=== PATIENT | female | born 1960 | race Caucasian/White ===

== ENCOUNTER → 2017-08-08 | Outpatient (CLI) | payer BC ==
[~2017-08-08] MED LIST: CLC100X PO; GLC/500 PO; HYOS1TAB PO; LEVO150T48 PO; LISI-461 PO; POLY335040 PO; SENN-61 PO; TAPE75TA PO
--- NOTE | 2017-08-08 16:00 | DIAGNOSTIC IMAGING REPORT ---
L LOWER EXT JOINT WITHOUT CLINICAL HISTORY: LEFT ANKLE PAIN, R/O STRESS FRACTURE trauma. Pain. TECHNIQUE: Multi axial MRI acquisition COMPARISON STUDY: None FINDINGS: Unremarkable signal characteristics the osseous structures throughout. Small heel spur. Mild amount of surrounding edema of the associated soft tissue and subcutaneous fat structures. Is potentially is reactive. All major ligamentous and tendinous structures are intact. Ankle mortise is aligned anatomically. There is no evidence for bone marrow replacing process of major osseous structures. All major ligamentous and tendinous structures are intact. Subtalar joint is unremarkable. IMPRESSION: 1. Small heel spur with a moderate amount of reactive soft tissue and subcutaneous fat edematous change. 2. This presumably is reactive. 3. All major ligamentous and tendinous structures are intact. 4. No acute bony abnormality. The above report was generated using voice recognition software. It may contain grammatical, syntax or spelling errors. Electronically signed by: Cristopher Soto M.D. 08/08/2017 3:59 PM Dictated Date/Time: 08/08/2017 3:51 PM
== END | disposition home or self-care (01) ==
LOC: C.MRIBC 14:53
PROVIDERS: ATTEND Orthopaedic Surgery
DX: M25.572 Pain in left ankle and joints of left foot (principal)

== ENCOUNTER → 2017-10-04 | Outpatient (CLI) | payer BC ==
--- NOTE | 2017-10-04 14:11 | MAMMOGRAPHY REPORT ---
BILATERAL DIGITAL SCREENING MAMMOGRAM TOMOSYNTHESIS WITH CAD: 10/04/2017 TECHNIQUE: Breast tomosynthesis in addition to standard 2D mammography was performed. Current study was also evaluated with a Computer Aided Detection (CAD) system. COMPARISON: Comparison is made to exams dated: 01/30/2014 mammogram, 12/11/2012 mammogram, 12/13/2011 m ammogram, 11/08/2010 mammogram, 11/03/2009 mammogram - [facility], and 10/23/2008. BREAST COMPOSITION: There are scattered areas of fibroglandular density in both breasts. FINDINGS: No suspicious masses, calcifications, or areas of architectural distortion are noted in ei ther breast. There has been no significant interval change compared to prior exams. Scattered bilater al benign-appearing calcifications are not significantly changed. IMPRESSION: ACR BI-RADS CATEGORY 2: BENIGN There is no mammographic evidence of malignancy. A 1 year screening mammogram is recommended. The pa tient will receive written notification of the results. Approximately 10% of breast cancers are not detected with mammography. A negative mammographic report should not delay biopsy if a clinically suggestive mass is present. Vivian Swanson M.D. ah/:10/04/2017 07:53:24 Top Lift Scourer: Brittany HALL(Rohit)(M), [facility] letter sent: Normal 1/2 BI-RADS Code: ACR BI-RADS Category 2: Benign
== END | disposition home or self-care (01) ==
LOC: C.MAMM 07:30
PROVIDERS: ATTEND Family Medicine
DX: Z12.31 Encounter for screening mammogram for malignant neoplasm of breast (principal)

== ENCOUNTER → 2018-05-23 | Outpatient (CLI) | payer OTHER ==
[~2018-05-23] MED LIST changes: +OPTIRAY 320 IV PRN
--- NOTE | 2018-05-23 16:09 | DIAGNOSTIC IMAGING REPORT ---
(CHEST FOR PE) ANGIO WITH CT DOSE: 450.63 mGy.cm HISTORY: Chest pain. Dyspnea. POS D DIMER TECHNIQUE: Multiaxial CT images of the chest were performed following the intravenous administration of contrast to evaluate the pulmonary arteries. Maximal intensity projection images were also obtained. A dose lowering technique was utilized adhering to the principles of ALARA. COMPARISON STUDY: None. FINDINGS: The thoracic aorta is normal in course and caliber. No evidence for aneurysm or dissection. Lymph node immediately anterior and superior to the right mainstem bronchus measuring 2.7 cm at maximum. No evidence for pulmonary embolus. Or main pulmonary vascular components enhance appropriately. Additional precarinal adenopathy with nodes measuring to 1.8 cm. Aortopulmonary window nodes are present measuring to 1.7 cm. Lungs otherwise are clear. No significant pulmonary nodularity. Limited evaluation of the upper abdomen demonstrates mild hepatomegaly. IMPRESSION: 1. Right hilar mass measuring 2.7 cm. 2. Additional pathologic mid mediastinal adenopathy. 3. No evidence for pulmonary embolus. 4. Neoplastic processes is the diagnosis of exclusion. The above report was generated using voice recognition software. It may contain grammatical, syntax or spelling errors. Electronically signed by: Cristopher Soto M.D. 05/23/2018 4:08 PM Dictated Date/Time: 05/23/2018 4:01 PM
== END ==
LOC: C.CTS 15:36
PROVIDERS: ATTEND Physician Assistant
DX: R91.8 Other nonspecific abnormal finding of lung field (principal); R59.0 Localized enlarged lymph nodes; R06.02 Shortness of breath; R79.89 Other specified abnormal findings of blood chemistry

== ENCOUNTER → 2018-05-23 | Outpatient (CLI) | payer OTHER ==
[~2018-05-23] MED LIST changes: -OPTIRAY 320 IV PRN
--- NOTE | 2018-05-23 13:47 | DIAGNOSTIC IMAGING REPORT ---
LEFT LOWER EXTREMITY VENOUS DOPPLER CLINICAL HISTORY: Left leg pain. COMPARISON STUDY: No previous studies for comparison. TECHNIQUE: Sonography of the deep venous system of the left lower extremity was performed. Compression and augmentation were evaluated. FINDINGS: The left common femoral, superficial femoral and popliteal veins were compressible. Augmentation was normal. Flow was shown within the deep calf vessels. IMPRESSION: No evidence of deep venous thrombus within the left lower extremity. Electronically signed by: Colton Martin M.D. 05/23/2018 1:46 PM Dictated Date/Time: 05/23/2018 1:44 PM
== END | disposition home or self-care (01) ==
LOC: C.ULTRBC 13:21
PROVIDERS: ATTEND Physician Assistant
DX: R06.02 Shortness of breath (principal); R60.0 Localized edema

== ENCOUNTER → 2018-05-23 | Outpatient (CLI) | payer OTHER ==
[2018-05-23 14:34] LABS: BASO % 0.2 %; BASO ABS # 0.02 K/uL (0-0.2); EOS % 0.8 %; EOS ABS # 0.08 K/uL (0-0.5); HEMATOCRIT 40.2 % (37-47); HEMOGLOBIN 13.3 g/dL (12.0-16.0); IG# 0.03 K/uL (0.00-0.02); LYMPH % 18.9 %; LYMPH ABS # 1.81 K/uL (1.2-3.4); MEAN CELL VOLUME 91.2 fL (80-100); MEAN CORPUSCULAR HEMOGLOBIN 30.2 pg (25-34); MEAN PLATELET VOLUME 9.4 fL (7.4-10.4); MONO % 9.6 %; MONO ABS # 0.92 K/uL (0.11-0.59); NEUT % 70.2 %; NEUT ABS # 6.71 K/uL (1.4-6.5); PLATELET COUNT 362 K/uL (130-400); RED CELL DISTRIBUTION WIDTH CV 13.6 % (11.5-14.5); RED CELL DISTRIBUTION WIDTH SD 44.6 fL (36.4-46.3); WHITE BLOOD COUNT 9.57 K/uL (4.8-10.8)
[2018-05-23 14:45] LABS: MEAN CORPUSCULAR HGB CONC 33.1 g/dl (32-36)
[2018-05-23 15:07] LABS: ALBUMIN 3.5 gm/dl (3.4-5.0); ALT/SGPT 73 U/L (12-78); AST/SGOT 42 U/L (15-37); BLOOD UREA NITROGEN 15 mg/dl (7-18); CARBON DIOXIDE 26 mmol/L (21-32); CREATININE 0.71 mg/dl (0.60-1.20); GLUCOSE 94 mg/dl (70-99); POTASSIUM 3.9 mmol/L (3.5-5.1); SODIUM 136 mmol/L (136-145)
[2018-05-23 15:15] LABS: ALKALINE PHOSPHATASE 132 U/L (45-117); TOTAL PROTEIN 7.8 gm/dl (6.4-8.2)
== END | disposition home or self-care (01) ==
LOC: C.LAB 14:06
PROVIDERS: ATTEND Physician Assistant
DX: R06.02 Shortness of breath (principal); R53.81 Other malaise; R53.83 Other fatigue; R60.0 Localized edema; R35.1 Nocturia; E03.4 Atrophy of thyroid (acquired)

== ENCOUNTER 2018-06-06 13:43 | Inpatient (IN) | payer OTHER ==
[~2018-06-06] VITALS: Ht 160 cm; Wt 86.8 kg
[2018-06-06 14:30] VITALS: BP 120/82; PULSE 101; TEMP 36.8; O2SAT 96
[2018-06-06 14:50] VITALS: BP 120/82; PULSE 101; TEMP 36.8; O2SAT 96
[2018-06-06] MEDS ORDERED: ACETAMINOPHEN 325 MG TAB PO PRN (15:00)
[2018-06-06] MEDS ORDERED: ONDANSETRON INJ 2 MG/ML 2 ML VIAL IV PRN (15:00)
[2018-06-06] MEDS ORDERED: LEVO150T9 PO (15:25)
[2018-06-06] MEDS ORDERED: FURO20TA PO (15:25)
[2018-06-06] MEDS ORDERED: BUPR150T6 PO (15:25)
[2018-06-06] MEDS ORDERED: MULT-190 PO (15:25)
[2018-06-06 16:03] LABS: HEMATOCRIT 32.7 % (37-47); HEMOGLOBIN 10.8 g/dL (12.0-16.0); MEAN CELL VOLUME 90.8 fL (80-100); MEAN PLATELET VOLUME 8.6 fL (7.4-10.4); PLATELET COUNT 518 K/uL (130-400); RED CELL DISTRIBUTION WIDTH CV 13.3 % (11.5-14.5); RED CELL DISTRIBUTION WIDTH SD 44.1 fL (36.4-46.3); WHITE BLOOD COUNT 10.39 K/uL (4.8-10.8)
[2018-06-06 16:24] LABS: ALBUMIN 2.6 gm/dl (3.4-5.0); ALKALINE PHOSPHATASE 104 U/L (45-117); ALT/SGPT 25 U/L (12-78); AST/SGOT 20 U/L (15-37); BLOOD UREA NITROGEN 12 mg/dl (7-18); CALCIUM 8.9 mg/dl (8.5-10.1); CARBON DIOXIDE 25 mmol/L (21-32); CREATININE 0.61 mg/dl (0.60-1.20); GLUCOSE 77 mg/dl (70-99); PHOSPHORUS 2.6 mg/dl (2.5-4.9); POTASSIUM 3.7 mmol/L (3.5-5.1); SODIUM 139 mmol/L (136-145); TOTAL PROTEIN 7.2 gm/dl (6.4-8.2)
--- NOTE | 2018-06-06 16:37 | History and Physical ---
History & Physical Date & Time of Service: Jun 06, 2018 ~ 1500 Chief Complaint: Hilar Adenopathy Primary Care Physician: Andra Goldsmith DO History of Present Illness Source: patient 57-year-old female who was referred for direct admission by Dr. Haridn for evaluation of hilar adenopathy. Over the past few weeks, patient has had extreme fatigue, poor appetite, weight loss, bilateral feet edema, right hand edema, and development of nodular painful rash. She had an outpatient chest CT scan done that showed a 2.7 cm right hilar lymph node with mid mediastinal lymphadenopathy. She reports the soles of her feet are very sore whenever she walks. She reports her symptoms have been slowly progressing. She has fullness of her neck, axilla, groin. She has lost about 13 pounds in 2 months. She has shortness of breath with minimal exertion. She denies orthopnea. No chest pain. She denies lightheadedness, dizziness, diaphoresis, syncopal events. No recent travel or sick contacts. She denies fevers, chills, and night sweats. No urinary symptoms. Patient was evaluated by Dr. Hardin in the clinic today who referred her for direct admission to undergo biopsy of the hilar adenopathy with Dr. Pizarro tomorrow. Past Medical/Surgical History Medical Problems: (1) Hypertension Status: Chronic (2) Hypothyroidism Status: Chronic (3) Polycystic ovary Status: Chronic Surgical Problems: (1) H/O dilation and curettage Status: Chronic (2) H/O tubal ligation Status: Chronic (3) History of carpal tunnel surgery of right wrist Status: Chronic (4) History of partial colectomy Status: Chronic (5) Status post ORIF of fracture of ankle Status: Chronic Family History FH: CAD (coronary artery disease) FATHER FH: hypertension FATHER FH: stroke FATHER Social History Smoking Status: Never Smoker Alcohol Use: occasionally Marital Status: Housing status: lives with family Occupational Status: employed Immunizations History of Influenza Vaccine: Yes Influenza Vaccine Date: Jul 20, 2017 History of Tetanus Vaccine?: Yes Tetanus Immunization Date: Feb 11, 2010 Allergies Coded Allergies: Sulfa Drugs (Verified Allergy, Unknown, ANAPHYLAXIS, 08/08/17) Home Medications Scheduled Bupropion HCl (Bupropion HCl Xl), 150 MG PO DAILY Furosemide (Lasix), 20 MG PO DAILY Levothyroxine Sodium (Levothyroxine Sodium), 1 TAB PO DAILY Lisinopril (Zestril), 10 MG PO DAILY Metformin Hcl (Glucophage), 500 MG PO BID Ocuvite Preservision (Ocuvite Preservision), 1 TAB PO DAILY Review of Systems ROS per HPI, all other systems reviewed and negative Physical Exam Vital Signs Date Time Temp Pulse Resp B/P (MAP) Pulse Ox O2 Delivery O2 Flow Rate FiO2 06/06/18 14:50 36.8 101 20 120/82 (95) 96 Room Air 06/06/18 14:30 36.8 101 20 120/82 (95) 96 Room Air General Appearance: WD/WN, no apparent distress Head: normocephalic, atraumatic Eyes: normal inspection, EOMI, sclerae normal ENT: hearing grossly normal, + pertinent finding (Mucous membranes moist) Neck: supple, no JVD, no carotid bruits, + pertinent finding (Fullness noted to the neck and a palpable lump noted in the left supraclavicular area) Respiratory/Chest: lungs clear, normal breath sounds, no respiratory distress Cardiovascular: regular rate, rhythm, normal peripheral pulses, + pertinent finding (+2 edema BLE, +1-2 edema noted to the right hand) Abdomen/GI: normal bowel sounds, non tender, soft, no organomegaly Extremities/Musculoskelatal: normal inspection, no calf tenderness, normal capillary refill Neurologic/Psych: no motor/sensory deficits, alert, normal mood/affect, oriented x 3 Skin: + rash (Scattered nodular mildly erythematous rash noted to the BUE and BLE) Lymphatic: + pertinent finding (Fullness noted to the neck, axilla, groin areas ; one palpable lump noted to the right supraclavicular area) Diagnostics Laboratory Results Results Past 24 Hours Test 06/06/18 15:49 Range/Units White Blood Count 10.39 4.8-10.8 K/uL Red Blood Count 3.60 4.2-5.4 M/uL Hemoglobin 10.8 12.0-16.0 g/dL Hematocrit 32.7 37-47 % Mean Corpuscular Volume 90.8 80-100 fL Mean Corpuscular Hemoglobin 30.0 25-34 pg Mean Corpuscular Hemoglobin Concent 33.0 32-36 g/dl RDW Standard Deviation 44.1 36.4-46.3 fL RDW Coefficient of Variation 13.3 11.5-14.5 % Platelet Count 518 130-400 K/uL Mean Platelet Volume 8.6 7.4-10.4 fL Diagnostic Radiology CTA CHEST 05/23/18 IMPRESSION: 1. Right hilar mass measuring 2.7 cm. 2. Additional pathologic mid mediastinal adenopathy. 3. No evidence for pulmonary embolus. 4. Neoplastic processes is the diagnosis of exclusion. Impression Assessment and Plan HILAR ADENOPATHY NODULAR RASH -Admit to [facility] -Patient referred for direct admission by Dr. Hardin for evaluation of hilar adenopathy -Over the past few weeks, patient has had extreme fatigue, poor appetite, weight loss, bilateral feet edema, right hand edema, and development of nodular painful rash. -Vital signs stable, labs notable for a mild anemia -Dr. Pizarro planning for biopsy tomorrow -Differentials considered sarcoidosis, lymphoma, erythema nodosum -Rheumatology consult, case discussed with Dr. Youngblood HYPOTHYROIDISM -Continue levothyroxine HYPERTENSION -continue lisinopril DVT PROPHYLAXIS -SCDs due to invasive procedure tomorrow DISPOSITION -In my clinical judgment this beneficiary meets acute admission criteria, established by [facility], that includes being hospitalized through two midnights. ADDENDUM: This is a 57 year old female with a past medical history HTN, hypothyroidism - presents with hilar adenopathy. Sent from pulmonology office. Will need biopsy Patient also has significant rash on b/l extremities, upper and lower. Nodular rash, erythematous and painful. Denies shortness of breath/chest pain. Plan for thoracic surgery to perform mediastinotomy and biopsy rheumatology consulted for the skin changes YOJANA level pending Anemia is new; possibly related to sarcoid? monitor H/H Resuscitation Status VTE Prophylaxis Will order VTE Prophylaxis: Yes
[2018-06-06 16:43] LABS: BASO % 0.3 %; BASO ABS # 0.03 K/uL (0-0.2); EOS % 1.3 %; EOS ABS # 0.13 K/uL (0-0.5); LYMPH % 15.1 %; LYMPH ABS # 1.56 K/uL (1.2-3.4); MONO % 9.2 %; MONO ABS # 0.95 K/uL (0.11-0.59); NEUT % 73.1 %; NEUT ABS # 7.56 K/uL (1.4-6.5)
[2018-06-06 17:20] VITALS: Ht 160 cm; Wt 86.8 kg
--- NOTE | 2018-06-06 18:49 | Progress Note ---
Progress Note Date of Service Jun 06, 2018. Progress Note This 57 year old lady is scheduled for mediastinoscopy and biopsy of a R hilar mass with Dr Pizarro. Prior to the last few weeks, she was in quite good health. She has a medical history of obesity, HTN, hypothyroidism, mild anemia, and PCOS. Over the last few weeks she has had increasing fatigue, unintentional weight loss, peripheral edema, and a dry cough. She denies dyspnea on exertion but has had severe fatigue with any level of exertion. Labs and studies were reviewed. CT of the chest showed no pulmonary edema or PE. She did have an ECG 2-3 weeks ago at [facility], which per the patient was normal, but her clinical picture has worsened since then. Exam was remarkable for normal cardiopulmonary exam. She had a reassuring airway. She has 2+ pitting edema in the bilateral lower extremities and 1+ in the R upper extremity. She also has a rash on her lower and upper extremities. I discussed risks and benefits of GETA with the patient and answered all questions. We will check an ECG tonight and as long as there is no significant changes that warrant an echocardiogram, she can proceed with surgery tomorrow morning.
--- NOTE | 2018-06-06 20:04 | SURGICAL CONSULTATION ---
DATE OF CONSULTATION: 06/06/2018 REASON FOR CONSULTATION: Mediastinal hilar adenopathy. 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 Hardin's office to evaluate her hilar adenopathy. Over the past 2-3 weeks, the patient has had a rapid onset of symptoms which are generalized to include extreme fatigue, poor appetite, weight loss, bilateral pedal edema and also some nodular painful erythematous nodes. These were actually even in her hand today. A CT scan was done as an outpatient which showed that she has marked right hilar and mediastinal adenopathy. Her feet are very sore on the soles. She has lost over 10 pounds in the last month or so. She has dyspnea. Dr. Hardin felt that we admitted her directly from the office in the hopes that we could get a diagnosis and asked me to evaluate her to consider a tissue diagnosis. PAST MEDICAL HISTORY: 1. Polycystic ovary. 2. Hypothyroidism. 3. Hypertension. 4. Lifetime nonsmoker. 5. Diabetes mellitus. PAST SURGICAL HISTORY: 1. 1, para 1, abortus 0. 2. D and C. 3. Tubal ligation. 4. Right carpal tunnel. 5. Partial colectomy. 6. Open reduction internal fixation of right ankle fracture. MEDICATIONS: 1. Bupropion. 2. Lasix. 3. Zestril. 4. Glucophage. 5. Synthroid. ALLERGIES: SULFA RESULT IN ANAPHYLAXIS. SOCIAL HISTORY: The patient lives at home with her . She is an business attorney. She has never smoked cigarettes. Occasionally, will have an alcoholic beverage. Her daughter is a student here at [employer]. FAMILY MEDICAL HISTORY: Daughter is healthy. Father has coronary artery disease, hypertension and a stroke. REVIEW OF SYSTEMS: The patient has lost weight. She really has had no night sweats or fevers. She does have this hilar adenopathy and complains of fullness in her neck and her axilla as well as her groin. She has pain in her feet when she walks. She has had no real joint effusions, but has painful nodules over her elbows and forearms. She also has one on her hand which started today. She has had no wound breakdown. She has had no visual or auditory changes. She denies diplopia. She is extremely fatigued. She denies nausea or vomiting, but has anorexia. She does have marked dyspnea on exertion. She has no orthopnea. She denies productive cough or hemoptysis. She has had no urinary symptoms. Neurologically, she has had no other symptoms other than that described. PHYSICAL EXAMINATION: GENERAL: This is a well-developed, well-nourished female who is awake, alert and oriented. She stands 5 feet 3 inches tall and weighs 191 pounds. HEENT: Extraocular movements are intact. Pupils are equal, round and reactive. Her sclerae are anicteric. She has no nasolabial flattening. Her teeth are in excellent repair. Her tongue is midline. She has no oral mucosal lesions and her pharynx is clear. NECK: Bit tender and thick, but I really do not detect lymphadenopathy. She has no carotid bruits, neck vein distention or thyromegaly. LUNGS: Grossly clear. HEART: She has a regular rate and rhythm of her heart. ABDOMEN: Obese but soft, really not very tender. EXTREMITIES: She does have erythema over her right volar forearm with no fluctuance. She has a painful nodule over her right proximal index finger on the palmar surface. She has good femoral pulses. She has excellent pedal pulses. She has about 2+ edema of her lower extremities. She has a well-healed incision on her right ankle. NEUROLOGIC: She is awake, alert and oriented, has no obvious focal deficits. ASSESSMENT AND PLAN: Marked mediastinal and hilar adenopathy in a patient with constellation of symptoms. The differential diagnosis is rather long here. I have discussed this with Dr. Hardin and we are going to proceed with a mediastinoscopy tomorrow. I had a long discussion with the patient about risk and benefits including but not limited to bleeding and recurrent nerve injury resulting in hoarseness. She understands and "would like to get an answer." We will proceed tomorrow. NAVARRO
[2018-06-06 23:56] VITALS: BP 124/78; PULSE 88; TEMP 36.7; O2SAT 96
[2018-06-07] VITALS (7 sets, daily range): BP systolic 108–129; BP diastolic 71–87; PULSE 83–98; TEMP 36.4–36.8; O2SAT 90–97
[2018-06-07] MEDS: LEVOTHYROXINE 150 MCG TAB PO SCH (06:25)
[2018-06-07 07:10] LABS: BASO % 0.4 %; BASO ABS # 0.03 K/uL (0-0.2); EOS % 2.3 %; EOS ABS # 0.17 K/uL (0-0.5); HEMATOCRIT 34.8 % (37-47); IG# 0.11 K/uL (0.00-0.02); LYMPH % 24.7 %; LYMPH ABS # 1.83 K/uL (1.2-3.4); MEAN CELL VOLUME 92.1 fL (80-100); MEAN CORPUSCULAR HEMOGLOBIN 29.1 pg (25-34); MEAN CORPUSCULAR HGB CONC 31.6 g/dl (32-36); MEAN PLATELET VOLUME 8.8 fL (7.4-10.4); MONO % 10.7 %; MONO ABS # 0.79 K/uL (0.11-0.59); NEUT % 60.4 %; NEUT ABS # 4.47 K/uL (1.4-6.5); PLATELET COUNT 530 K/uL (130-400); RED CELL DISTRIBUTION WIDTH CV 13.4 % (11.5-14.5); RED CELL DISTRIBUTION WIDTH SD 45.3 fL (36.4-46.3)
--- NOTE | 2018-06-07 07:35 | Rheumatology Consultation ---
Rheumatology Consultation Date of Consultation: Jun 07, 2018. Reason for Consultation: Concern for sarcoidosis History of Present Illness 57 year old woman with medical history of hypothyroidism since age 20, hypertension, and history of diverticulitis s/p partial colectomy in 2009 who was admitted from the pulmonary clinic for further evaluation of a hilar mass and lymphadenopathy. History obtained from the patient and review of her records. Onset of symptoms began in early May when she began to notice increased fatigue and constant yawning. She then developed swelling in her feet left worse than right. On 05/23/18 she was seen at [facility] regarding these symptoms. She also noted shortness of breath, decreased appetite, frequent urination, and intermittent head pressure. On exam, her left lower leg was noted to be larger than her right. Several labs were ordered in addition to lower extremity dopplers and EKG. Labs were done at [facility] and showed sed rate of 68, D-dimer 1320, TSH 0.277, CMP with creatinine of 0.71, mildly elevated alk phos at 132, and AST at 42. Lower extremity ultrasound was negative for DVT. CTA did not show pulmonary embolism but revealed lymphadenopathy and a 2.7 cm right hilar mass. She was referred to pulmonary medicine. She was seen again on 05/28 and was noted to have redness and swelling along her right elbow as well as enlarged inguinal lymph nodes. A CT scan of the abdomen and pelvis was ordered. She reported tick exposure. Lyme test was ordered and she was prescribed doxycycline and lasix for her leg swelling. Lyme test returned negative. She notes that the lasix was not helpful. At a follow-up appointment on 06/04/18, she reported 13 pound weight loss in the past 2 months which she attributed to starting Wellbutrin, excessive sleepiness, and dyspnea on exertion. She also noted multiple warm, red, tender raised ernst on her arms and legs thought consistent with erythema nodosum. She had tried Aleve which helped the pain she was experiencing at her ankles and around the tender raised areas but stopped it because of abdominal pain. Labs were ordered and she was prescribed prednisone 20 mg daily for 10 days and potassium iodide. She notes that she could not obtain the potassium iodide and did not take the prednisone. Outside labs from 06/04 showed CBC with platelet count of 569, negative anti-streptolysin O, Sed rate 103, and CRP 140. She was seen by Dr. Hardin on 06/06 and sent to [facility] for direct admission for biopsy. Today, she notes ongoing fatigue. She reports light sensitivity. Legs remain swollen and tender. She notes progression of the red and tender areas on her right arm and new spots on her left hand. She finds benefit from elevating her feet. She has not had any chest pain. No fevers at home or night sweats but soaked her pillow last night which she attributes to sleeping on the plastic side of the pillow. She notes continued decreased appetite. No nausea, vomiting, diarrhea or constipation. No recent travel or sick contacts. 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 Past Medical/Surgical History Hypertension Diverticulitis PCOS Hypothyroidism Tubal ligation D&C Partial colectomy right carpal tunnel release ORIF of right ankle Social History Smoking Status: Never Smoker History of Alcohol Use: Yes (couple monthly) Marital Status: Housing Status: lives with family Occupation Status: employed Review of Systems Constitutional: + weight loss, + fatigue, No fever, No chills Eyes: + problem reported (eye burning) ENT: + problem reported (hoarseness) Respiratory: + dyspnea on exertion Cardiac: + edema Abdomen: + pain Musculoskeletal: + joint pain Female : + urinary frequency Endo: + fatigue, + excessive urination Skin: + rash, + new/changing skin lesions Allergies Coded Allergies: Sulfa Drugs (Verified Allergy, Unknown, ANAPHYLAXIS, 08/08/17) Medications Current Inpatient Medications Medications (Trade) Dose Ordered Sig/Ligia Route Start Time Stop Time Status Last Admin Dose Admin Acetaminophen (Tylenol Tab) 650 mg Q4H PRN PO 06/06/18 15:00 07/06/18 14:59 06/06/18 20:42 650 MG Ondansetron HCl (Zofran Inj) 4 mg Q6H PRN IV 06/06/18 15:00 07/06/18 14:59 Bupropion HCl (Wellbutrin-Xl Tab) 150 mg DAILY PO 06/07/18 09:00 07/07/18 08:59 Levothyroxine Sodium (Synthroid Tab) 150 mcg DAILYBB PO 06/07/18 06:30 07/07/18 06:29 06/07/18 06:25 150 MCG Lisinopril (Zestril Tab) 10 mg DAILY PO 06/07/18 09:00 07/07/18 08:59 Multivitamins/ Minerals (Multivitamin W/ Minerals Tab) 1 tab DAILY PO 06/07/18 09:00 07/07/18 08:59 Physical Exam Date Time Temp Pulse Resp B/P (MAP) Pulse Ox O2 Delivery O2 Flow Rate FiO2 06/07/18 00:00 Room Air 06/06/18 23:56 36.7 88 20 124/78 (93) 96 Room Air 06/06/18 17:20 Room Air 06/06/18 16:00 Room Air 06/06/18 14:50 36.8 101 20 120/82 (95) 96 Room Air 06/06/18 14:30 36.8 101 20 120/82 (95) 96 Room Air Eyes: bilateral eyes normal inspection, bilateral eyes EOMI ENT: normal ENT inspection Neck: supple, + thyroid abnormalities Respiratory: chest non-tender, lungs clear, normal breath sounds, no respiratory distress, no accessory muscle use Cardiovascular: regular rate, rhythm, no murmur Abdomen: normal bowel sounds, non tender, soft Musculoskeletal: Tender joints: right wrist, right elbow, ankles Swollen joints: right wrist, soft tissue swelling of feet and ankles Skin: + pertinent finding (erythema at top of feet, right elbow/extensor surface, small erythematous patch on left hand) Laboratory Results Last 24 Hours Test 06/06/18 15:49 06/07/18 06:23 White Blood Count 10.39 K/uL Red Blood Count 3.60 M/uL Hemoglobin 10.8 g/dL Hematocrit 32.7 % Mean Corpuscular Volume 90.8 fL Mean Corpuscular Hemoglobin 30.0 pg Mean Corpuscular Hemoglobin Concent 33.0 g/dl Platelet Count 518 K/uL Mean Platelet Volume 8.6 fL Neutrophils (%) (Auto) 73.1 % Lymphocytes (%) (Auto) 15.1 % Monocytes (%) (Auto) 9.2 % Eosinophils (%) (Auto) 1.3 % Basophils (%) (Auto) 0.3 % Neutrophils # (Auto) 7.56 K/uL Lymphocytes # (Auto) 1.56 K/uL Monocytes # (Auto) 0.95 K/uL Eosinophils # (Auto) 0.13 K/uL Basophils # (Auto) 0.03 K/uL RDW Standard Deviation 44.1 fL RDW Coefficient of Variation 13.3 % Immature Granulocyte % (Auto) 1.0 % Immature Granulocyte # (Auto) 0.10 K/uL Nucleated RBC Absolute Count (auto) 0.00 K/uL Nucleated Red Blood Cells % 0.0 % Sodium Level 139 mmol/L Potassium Level 3.7 mmol/L Chloride Level 105 mmol/L Carbon Dioxide Level 25 mmol/L Anion Gap 9.0 mmol/L Blood Urea Nitrogen 12 mg/dl Creatinine 0.61 mg/dl Estimated GFR () 118.3 Estimated GFR (Non- 102.1 BUN/Creatinine Ratio 19.6 Random Glucose 77 mg/dl Calcium Level 8.9 mg/dl Phosphorus Level 2.6 mg/dl Magnesium Level 2.4 mg/dl Total Bilirubin 0.3 mg/dl Aspartate Amino Transf (AST/SGOT) 20 U/L Alanine Aminotransferase (ALT/SGPT) 25 U/L Alkaline Phosphatase 104 U/L Total Protein 7.2 gm/dl Albumin 2.6 gm/dl Globulin 4.6 gm/dl Albumin/Globulin Ratio 0.6 Assessment & Plan Assessment & Plan: 57 year old woman with fatigue, lower and upper extremity edema in the setting of systemic inflammation and hilar and mediastinal lymphadenopathy. Differential diagnosis includes infection, a systemic inflammatory syndrome such as sarcoidosis versus vasculitis, and malignancy. Recommendations 1. Agree and appreciate that patient is scheduled for lymph node biopsy 2. Consider echocardiogram 3. Please check ANCA, 1-25 hydroxy-vitamin D and Quantiferon TB gold 4. Can treat with corticosteroids after biopsy. 5. She can be scheduled with me in follow-up as a return patient 1 week after discharge. Thank you for allowing rheumatology to participate in the care of this patient.
[2018-06-07 07:42] LABS: CALCIUM 9.2 mg/dl (8.5-10.1); CREATININE 0.68 mg/dl (0.60-1.20)
[2018-06-07] MEDS ORDERED: LIDOCAINE HCL 2% 2 ML VIAL (20MG/ML) ONE (09:31)
[2018-06-07] MEDS ORDERED: NEOSTIGMINE METHYLSULFATE 5 MG/5 ML SYR ONE (09:31)
[2018-06-07] MEDS ORDERED: ONDANSETRON INJ 2 MG/ML 2 ML VIAL ONE (09:31)
[2018-06-07] MEDS ORDERED: GLYCOPYRROLATE INJ 0.2 MG/ML VIAL ONE (09:31)
[2018-06-07] MEDS ORDERED: DEXAMETHASONE SOD INJ 4 MG/ML VIAL ONE (09:31)
[2018-06-07] MEDS ORDERED: PROPOFOL IV EMULSION 10 MG/ML 20 ML VIAL ONE ×2 (09:31→10:59)
[2018-06-07] MEDS ORDERED: MIDAZOLAM HCL 1 MG/ML 2ML VIAL ONE (09:31)
[2018-06-07] MEDS ORDERED: FENTANYL CITRATE INJ 50 MCG/1 ML 2 ML VIAL ONE (09:31)
[2018-06-07] MEDS ORDERED: ROCURONIUM BROMIDE 10 MG/ML 5 ML VIAL ONE (09:31)
[2018-06-07] MEDS ORDERED: BUPIVACAINE 0.5 % 5 MG/1 ML PF 10ML VIAL ONE (10:07)
--- NOTE | 2018-06-07 10:23 | ECHOCARDIOGRAM REPORT ---
*NOTICE TO RECEIVING CONSTITUTION PARTY AGENCY This information is strictly Confidential and protected under [place] law. [place] law prohibits you from making any further disclosure of this information unless further disclosure is expressly permitted by the written consent of the person to whom it pertains or is authorized by law. A general authorization for the release of medical or other information is not sufficient for this purpose. Hospital accepts no responsibility if the information is made available to any other person, INCLUDING THE PATIENT. Interpretation Summary * Name: GEN SAMUEL Study Date: 06/07/2018 08:26 AM BP: 129/87 mmHg * Patient Location: .[id number]\W261\S\1 HR: 87 * : 1960 (M/d/yyyy) Gender: Female Height: 63 in * Age: 57 yrs Ethnicity: [place] Weight: 191 lb * Ordering Physician: Laisha Valente * Referring Physician: Jamie Baxter * Performed By: Maddy Schulte RCS * * Reason For Study: SHORTNESS OF BREATH * BSA: 1.9 m2 * -- Conclusions -- * Normal LV chamber size with mild concentric LVH. * Normal LV systolic function, EF 60-65%. * No segmental left ventricular wall motion abnormalities are noted. * Grade I diastolic dysfunction. * No significant valvular pathology. Procedure Details * A complete two-dimensional transthoracic echocardiogram was performed (2D, M-mode, Doppler and color flow Doppler). Left Ventricle * The left ventricle is normal in size. * There is mild concentric left ventricular hypertrophy. * Left ventricular systolic function is normal. * No segmental left ventricular wall motion abnormalities are noted. * Ejection Fraction = 60-65%. * The left ventricular wall motion is normal. Right Ventricle * The right ventricular cavity size is normal (basal dimension <4.2 cm in right ventricular apical 4-chamber view). * The right ventricular systolic function is normal as assessed by tricuspid annular plane systolic excursion (TAPSE) (normal >1.5 cm). Atria * The left atrium is mildly dilated. * Right atrial size is normal. * No ASD detected; PFO is not assessed. Mitral Valve * The mitral valve is normal in structure and function. Tricuspid Valve * The tricuspid valve is normal in structure and function. Aortic Valve * The aortic valve is normal in structure and function. Pulmonic Valve * The pulmonary valve is not well seen, but the Doppler examination is normal without significant regurgitation or stenosis. Great Vessels * The aortic root and proximal ascending aorta are normal sized. Pericardium/Pleural * There is no pericardial effusion. Left Ventricular Diastolic Function * Grade I diastolic dysfunction, (abnormal relaxation pattern). MMode 2D Measurements and Calculations IVSd 1.2 cm IVSs 1.4 cm LVIDd 3.5 cm LVIDs 2.3 cm LVPWd 1.2 cm LVPWs 1.4 cm IVS/LVPW 1.0 FS 33.9 % EDV(Teich) 49.9 ml ESV(Teich) 18.0 ml EF(Teich) 63.9 % EDV(cubed) 41.8 ml ESV(cubed) 12.1 ml EF(cubed) 71.2 % % IVS thick 18.5 % % LVPW thick 14.3 % LV mass(C)d 135.4 grams LV mass(C)dI 71.4 grams/m\S\2 LV mass(C)s 101.1 grams LV mass(C)sI 53.3 grams/m\S\2 SV(Teich) 31.9 ml SI(Teich) 16.8 ml/m\S\2 SV(cubed) 29.8 ml SI(cubed) 15.7 ml/m\S\2 Ao root diam 3.4 cm Ao root area 8.9 cm\S\2 LA dimension 4.1 cm LA/Ao 1.2 LVOT diam 2.0 cm LVOT area 3.3 cm\S\2 Doppler Measurements and Calculations MV E max lily 71.7 cm/sec MV A max lily 70.6 cm/sec MV E/A 1.0 MV P1/2t max lily 82.8 cm/sec MV P1/2t 71.9 msec MVA(P1/2t) 3.1 cm\S\2 MV dec slope 337.6 cm/sec\S\2 MV dec time 0.22 sec Ao V2 max 113.0 cm/sec Ao max PG 5.1 mmHg Ao max PG (full) 1.7 mmHg CORINNE(V,A) 2.7 cm\S\2 CORINNE(V,D) 2.7 cm\S\2 LV V1 max PG 3.4 mmHg LV V1 max 92.8 cm/sec PA V2 max 93.2 cm/sec PA max PG 3.5 mmHg PI max lily 135.5 cm/sec PI max PG 7.3 mmHg PI dec slope 233.9 cm/sec\S\2 PI P1/2t 169.6 msec
--- NOTE | 2018-06-07 10:26 | History & Physical Bridge Note ---
H&P Re-Evaluation Bridge Note: I have examined the patient, reviewed the History & Physical and in the interval since the performance of the History & Physical I have noted the following changes of clinical significance: No changes noted
[2018-06-07] MEDS ORDERED: CEFAZOLIN SOD 1 GM VIAL ONE ×2 (10:43→10:44)
--- NOTE | 2018-06-07 11:26 | [facility] Post Operative Brief Note ---
Immediate Operative Summary Operative Date Jun 07, 2018. Pre-Operative Diagnosis Mediastinal hilar adenopathy. Post-Operative Diagnosis Granulomatous lymphadenopathy Procedure(s) Performed Mediastinoscopy with biopsies Surgeon Dr Pizarro Fruit Tester Surgeon(s) Kaushal Ordaz PA-C Estimated Blood Loss 5 cc's Findings Consistent with Post-Op Diagnosis Specimens Frozen section#1 R4 lymph node
[2018-06-07] MEDS ORDERED: D5W AND 1/2NSS 1,000 ML IV SCH (11:29)
[2018-06-07] MEDS ORDERED: TRAMADOL HCL 50 MG TAB PO PRN (11:30)
[2018-06-07] MEDS ORDERED: MoRPHine SULFATE 2 MG/ML CARP IV PRN (11:30)
--- NOTE | 2018-06-07 11:56 | DIAGNOSTIC IMAGING REPORT ---
SINGLE VIEW CHEST CLINICAL HISTORY: Status post mediastinoscopy. FINDINGS: An AP, portable, upright chest radiograph is compared to study dated 03/16/2013 and correlated with chest CT dated 05/23/2018. The examination is degraded by portable technique and patient rotation. The cardiomediastinal silhouette is unremarkable. There are low lung volumes with bibasilar atelectasis. No airspace consolidation or large pleural effusion is identified. No pneumothorax is seen. The bony thorax is grossly intact. IMPRESSION: 1. Low lung volumes with bibasilar atelectasis. 2. No pneumothorax is seen post procedure. Electronically signed by: Zain Villaseñor M.D. 06/07/2018 11:55 AM Dictated Date/Time: 06/07/2018 11:53 AM
[2018-06-07] MEDS ORDERED: HYDROmorphone INJ 0.5 MG/0.5 ML SYR ONE (11:59)
[2018-06-07] MEDS ORDERED: HYDROmorphone INJ 1 MG/ML SYR IV PRN (12:15)
[2018-06-07] MEDS ORDERED: ONDANSETRON INJ 2 MG/ML 2 ML VIAL IV PRN (12:15)
[2018-06-07] MEDS ORDERED: PHENYLEPHRINE 100MCG/ML 5ML SYR IV PRN (12:15)
[2018-06-07] MEDS ORDERED: ATROPINE SULFATE 0.1 MG/ML 5ML SYR IV PRN (12:15)
[2018-06-07] MEDS ORDERED: EpHEDrine SULFATE INJ 50 MG/ML AMP IV PRN (12:15)
--- NOTE | 2018-06-07 12:21 | Anesthesiology Progress Note ---
Anesthesia Post Op Note Date & Time Jun 07, 2018 at 12:20 Vital Signs Pain Intensity: 5.0 Vital Signs Past 12 Hours Date Time Temp Pulse Resp B/P (MAP) Pulse Ox O2 Delivery O2 Flow Rate FiO2 06/07/18 12:10 79 14 114/82 98 Room Air 06/07/18 12:00 85 12 116/72 100 Oxyhood 10 06/07/18 11:50 85 12 122/72 100 Oxyhood 10 06/07/18 11:40 36.2 92 12 118/80 94 Oxyhood 10 06/07/18 08:00 96 Room Air 06/07/18 07:30 36.6 83 18 129/87 (101) 96 Room Air Notes Mental Status: alert / awake / arousable, participated in evaluation Pt Amnestic to Procedure: Yes Nausea / Vomiting: adequately controlled Pain: adequately controlled Airway Patency, RR, SpO2: stable & adequate BP & HR: stable & adequate Hydration State: stable & adequate Anesthetic Complications: no major complications apparent
--- NOTE | 2018-06-07 12:36 | OPERATIVE REPORT ---
DATE OF OPERATION: 06/07/2018 PREOPERATIVE DIAGNOSIS: Mediastinal adenopathy. POSTOPERATIVE DIAGNOSIS: Apparent granulomatous inflammation mediastinal lymph nodes. PROCEDURE: Video mediastinoscopy with biopsy. SURGEON: Michael Pizarro MD VIDEO GAME REPAIR TECHNICIAN: Shamar Ordaz. (Mr. Ordaz was present for the entire case and closed the skin incision at conclusion). ANESTHESIA: General anesthesia, endotracheal intubation. 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 She has had marked arthralgias. She has had what appeared to be erythema nodosum. She has been quite short of breath and had edema in her pretibial and tibial areas. She has been markedly dyspneic but has had no real cough. She has had no fevers. She has marked mediastinal and hilar adenopathy. Dr. Nathan Hardin asked if I would evaluate her. I felt that a mediastinoscopy is the most expedient way to get a diagnosis here. On 06/07/2018 the patient underwent uncomplicated video mediastinoscopy. I biopsied a very large right level 4 node, a level 2 node and a level 7 node. I did not biopsy anything on the left side. She also had a cervical node which was right in the area of the incision that I removed. We got into very little bleeding. We did use cautery on the right side. She tolerated it well, was extubated in the room. PROCEDURE: The patient brought to operating room and laid in supine position. General anesthesia induced and endotracheal intubation was performed with a single lumen tube. She was prepped and draped in usual sterile fashion, calling appropriate timeout and given prophylactic antibiotics. Incision was made 1 fingerbreadth below the sternal notch. Sharp and blunt dissection was used to dissect down to the pretracheal area which was developed bluntly. The video mediastinoscope was then placed and we could see that there was a large level 4 node right away. I biopsied this multiple times and essentially cleaned this off above the azygos vein on the right. There also was a smaller right level 2 node which I biopsied. We did send a level 4 for frozen section. There was a significant level 7 node that I biopsied also. I did control bleeding of this with the suction cautery. We had excellent visualization. I visualized the azygos vein and biopsied a small level 10 node also. There was a larger hilar node out further. However, I did not feel this was necessary after we got the frozen section back. We really got into very little bleeding. We sent the level 4 off for frozen section and I went over to the lab and looked at this with Dr. Alok Santamaria. This appears to be granulomatous inflammation with non-necrotizing granulomas. For this reason we felt that we could close at this point. 3-0 Vicryl was used in running continuous fashion and closed the strap muscles in the midline. 4-0 Monocryl was used in running subcuticular fashion to approximate the wound edges. She tolerated it very well. Sterile antibiotic dressings were placed and she went back to the postanesthesia care unit in stable condition. I attest to the content of the Intraoperative Record and any orders documented therein. Any exception s are noted below.
[2018-06-07] MEDS: METOCLOPRAMIDE HCL INJ 5 MG/ML 2 ML VIAL IV. SCH ×2 (13:33→21:55)
[2018-06-07] MEDS: ACETAMINOPHEN IV 1,000 MG in EMPTY BAG 0 ML IV SCH ×2 (13:34→21:58)
--- NOTE | 2018-06-07 15:59 | Progress Note ---
Internal Med Progress Note Date of Service: Jun 07, 2018. Provider Documentation: SUBJECTIVE: The patient was seen but not examined History and examination report reviewed She has been feeling awful for the last 1-1/2 week Denies any significant pain and/or shortness of breath OBJECTIVE: Vital Signs-as noted below Exam: Not examined today Lab data as noted below. ASSESSMENT & PLAN: Assessment and Plan HILAR ADENOPATHY NODULAR RASH -Patient referred for direct admission by Dr. Hardin for evaluation of hilar adenopathy -Over the past few weeks, patient has had extreme fatigue, poor appetite, weight loss, bilateral feet edema, right hand edema, and development of nodular painful rash. -Vital signs stable, labs notable for a mild anemia -Dr. Pizarro planning for biopsy this afternoon -Differentials considered sarcoidosis, lymphoma, erythema nodosum -Rheumatology consult, case discussed with Dr. Youngblood-appreciate input and recommendation -Awaiting for the blood test results HYPOTHYROIDISM -Continue levothyroxine HYPERTENSION -continue lisinopril DVT PROPHYLAXIS -SCDs due to invasive procedure tomorrow DISPOSITION -In my clinical judgment this beneficiary meets acute admission criteria, established by [facility], that includes being hospitalized through two midnights. Vital Signs: Date Time Temp Pulse Resp B/P (MAP) Pulse Ox O2 Delivery O2 Flow Rate FiO2 06/07/18 15:18 36.8 98 17 108/72 (84) 95 Room Air 06/07/18 13:15 36.6 88 16 121/81 (94) 90 Room Air 06/07/18 12:56 36.4 84 16 127/84 (98) 91 Room Air 06/07/18 12:30 36.7 80 12 127/92 99 Room Air 06/07/18 12:20 79 14 123/82 99 Room Air 06/07/18 12:10 79 14 114/82 98 Room Air 06/07/18 12:00 85 12 116/72 100 Oxyhood 10 06/07/18 11:50 85 12 122/72 100 Oxyhood 10 06/07/18 11:40 36.2 92 12 118/80 94 Oxyhood 10 06/07/18 08:00 96 Room Air 06/07/18 07:30 36.6 83 18 129/87 (101) 96 Room Air 06/07/18 00:00 Room Air 06/06/18 23:56 36.7 88 20 124/78 (93) 96 Room Air 06/06/18 17:20 Room Air 06/06/18 16:00 Room Air Lab Results: Results Past 24 Hours Test 06/07/18 06:23 06/07/18 13:01 Range/Units White Blood Count 7.40 4.8-10.8 K/uL Red Blood Count 3.78 4.2-5.4 M/uL Hemoglobin 11.0 12.0-16.0 g/dL Hematocrit 34.8 37-47 % Mean Corpuscular Volume 92.1 80-100 fL Mean Corpuscular Hemoglobin 29.1 25-34 pg Mean Corpuscular Hemoglobin Concent 31.6 32-36 g/dl Platelet Count 530 130-400 K/uL Mean Platelet Volume 8.8 7.4-10.4 fL Neutrophils (%) (Auto) 60.4 % Lymphocytes (%) (Auto) 24.7 % Monocytes (%) (Auto) 10.7 % Eosinophils (%) (Auto) 2.3 % Basophils (%) (Auto) 0.4 % Neutrophils # (Auto) 4.47 1.4-6.5 K/uL Lymphocytes # (Auto) 1.83 1.2-3.4 K/uL Monocytes # (Auto) 0.79 0.11-0.59 K/uL Eosinophils # (Auto) 0.17 0-0.5 K/uL Basophils # (Auto) 0.03 0-0.2 K/uL RDW Standard Deviation 45.3 36.4-46.3 fL RDW Coefficient of Variation 13.4 11.5-14.5 % Immature Granulocyte % (Auto) 1.5 % Immature Granulocyte # (Auto) 0.11 0.00-0.02 K/uL Sodium Level 139 136-145 mmol/L Potassium Level 4.0 3.5-5.1 mmol/L Chloride Level 104 98-107 mmol/L Carbon Dioxide Level 27 21-32 mmol/L Anion Gap 8.0 3-11 mmol/L Blood Urea Nitrogen 12 7-18 mg/dl Creatinine 0.68 0.60-1.20 mg/dl Est Creatinine Clear Calc Drug Dose 97.6 ml/min Estimated GFR () 114.1 Estimated GFR (Non- 98.5 BUN/Creatinine Ratio 17.3 10-20 Random Glucose 113 70-99 mg/dl Calcium Level 9.2 8.5-10.1 mg/dl 25-Hydroxy Vitamin D Total 8.0 30-100 ng/ml Microbiology Results 06/07/18 Acid Fast Stain, Received Pending 06/07/18 Mycobacterial Culture, Received Pending 06/07/18 Fungal Smear, Received Pending 06/07/18 Fungal Culture, Received Pending 06/07/18 Gram Stain, Received Pending 06/07/18 Bacterial Culture, Received Pending 06/07/18 Acid Fast Stain, Received Pending 06/07/18 Mycobacterial Culture, Received Pending 06/07/18 Fungal Smear, Received Pending 06/07/18 Fungal Culture, Received Pending 06/07/18 Gram Stain, Received Pending 06/07/18 Bacterial Culture, Received Pending
[2018-06-07] MEDS: CEROVITE ADV FORMULA TAB PO SCH (16:19)
[2018-06-07] MEDS: BuPROPion XL 150 MG TABCR PO SCH (16:19)
[2018-06-07] MEDS: LISINOPRIL 10 MG TAB PO SCH (16:20)
[2018-06-07] MEDS ORDERED: COUGH DROP (SUGAR FREE) LOZ 24 LOZ/1 BOX LOZ PRN (17:15)
[2018-06-07] MEDS ORDERED: ERGOCALCIFEROL 50,000 INTER.UNIT CAP PO ONE (17:43)
[2018-06-07] MEDS: DOCUSATE SODIUM 100 MG CAP PO SCH (21:57)
[2018-06-08] MEDS: LEVOTHYROXINE 150 MCG TAB PO SCH (05:52)
[2018-06-08] MEDS: ACETAMINOPHEN IV 1,000 MG in EMPTY BAG 0 ML IV SCH (05:52)
[2018-06-08] MEDS: METOCLOPRAMIDE HCL INJ 5 MG/ML 2 ML VIAL IV. SCH (05:53)
[2018-06-08 07:16] VITALS: BP 119/76; PULSE 101; TEMP 36.8; O2SAT 96
[2018-06-08 07:45] VITALS: O2SAT 96
[2018-06-08] MEDS: BuPROPion XL 150 MG TABCR PO SCH (08:13)
[2018-06-08] MEDS: DOCUSATE SODIUM 100 MG CAP PO SCH (08:13)
[2018-06-08] MEDS: CEROVITE ADV FORMULA TAB PO SCH (08:15)
[2018-06-08] MEDS ORDERED: ENOXAPARIN 40 MG/0.4 ML SYR SQ SCH (09:00)
[2018-06-08] MEDS: LISINOPRIL 10 MG TAB PO SCH (09:03)
--- NOTE | 2018-06-08 09:40 | Surgery Progress Note ---
Subjective Date of Service: Jun 08, 2018. Pt. notes she has some hoarseness in her voice that was present prior to surgery. No fevers, shakes, chills. No CP or SOB. She denies dysphagia. Objective Vitals Date Time Temp Pulse Resp B/P (MAP) Pulse Ox O2 Delivery O2 Flow Rate FiO2 06/08/18 07:45 96 Room Air 06/08/18 07:16 36.8 101 16 119/76 (90) 96 Room Air 06/08/18 00:00 Room Air 06/07/18 23:22 36.7 98 16 108/71 (83) 96 Room Air 06/07/18 16:17 97 Room Air 06/07/18 15:18 36.8 98 17 108/72 (84) 95 Room Air 06/07/18 13:15 36.6 88 16 121/81 (94) 90 Room Air 06/07/18 12:56 36.4 84 16 127/84 (98) 91 Room Air 06/07/18 12:30 36.7 80 12 127/92 99 Room Air 06/07/18 12:20 79 14 123/82 99 Room Air 06/07/18 12:10 79 14 114/82 98 Room Air 06/07/18 12:00 85 12 116/72 100 Oxyhood 10 06/07/18 11:50 85 12 122/72 100 Oxyhood 10 06/07/18 11:40 36.2 92 12 118/80 94 Oxyhood 10 Physical Exam General: + well developed, + well nourished, No distress CV: + RRR Pulmonary: + lungs clear, No accessory muscle use, No respiratory distress Neurologic: + alert & oriented x 3 Additional Notes: Voice is somewhat raspy and hoarse Assessment & Plan 57 year old female with mediastinal adenopathy -pt. is s/p mediastinoscopy: -preliminary path suggestive of sarcoidosis -pt. has been started on steroids by primary service -pt. stable for d/c from thoracic surgery standpoint: -discussed with pt. that dressing may be removed in 2 days and she may shower thereafter (no tub baths) -formal follow-up with thoracic not required, however I instructed pt. to call office with any concerns -pt. will need to f/u with PCP, rheumatology, and pulmonary following d/c -discussed with primary service
[2018-06-08 10:34] VITALS: BP 119/76; PULSE 101; TEMP 36.8; O2SAT 96
--- NOTE | 2018-06-08 10:40 | Progress Note ---
Internal Med Progress Note Date of Service: Jun 08, 2018. Provider Documentation: SUBJECTIVE: The patient was seen but not examined History and examination report reviewed She has been feeling awful for the last 1-1/2 week Denies any significant pain and/or shortness of breath 06/08: Has been feeling reasonably better since yesterday Status post mediastinoscopy and lymph node biopsy suggestive of sarcoidosis Has been started 1 prednisone 40 mg daily since yesterday Her symptoms of joint pain and swelling are much better She will be discharged today OBJECTIVE: Vital Signs-as noted below Exam: No apparent distress at rest Hemodynamically stable HEENT-unremarkable Chest-occasional wheezing anteriorly Heart-S1-S2 regular, no murmur Abdomen-benign Extremities-trace edema bilaterally REWIND OPERATOR-alert ,awake and oriented 3 No focal neuro deficit Lab data as noted below. Frozen section biopsy of mediastinal lymph node suggestive of sarcoidosis Final diagnosis is pending ASSESSMENT & PLAN: Assessment and Plan Sarcoidosis HILAR ADENOPATHY NODULAR RASH -Patient referred for direct admission by Dr. Hardin for evaluation of hilar adenopathy -Over the past few weeks, patient has had extreme fatigue, poor appetite, weight loss, bilateral feet edema, right hand edema, and development of nodular painful rash. -Vital signs stable, labs notable for a mild anemia -Dr. Pizarro planning for biopsy this afternoon -Differentials considered sarcoidosis, lymphoma, erythema nodosum -Rheumatology consult, case discussed with Dr. Youngblood-appreciate input and recommendation -Started on prednisone 40 mg daily -Discussed with the rheumatology, pulmonary and vascular surgery -We will discharge home today on prednisone 40 mg daily -Appointments with the pulmonary, primary care have been made Status post mediastinoscopy with lymph node biopsy Frozen section showed noncaseating granuloma suggestive of sarcoidosis Final pathology report is pending HYPOTHYROIDISM -Continue levothyroxine HYPERTENSION -continue lisinopril DVT PROPHYLAXIS -SCDs due to invasive procedure tomorrow DISPOSITION -Discharge home today Vital Signs: Date Time Temp Pulse Resp B/P (MAP) Pulse Ox O2 Delivery O2 Flow Rate FiO2 06/08/18 07:45 96 Room Air 06/08/18 07:16 36.8 101 16 119/76 (90) 96 Room Air 06/08/18 00:00 Room Air 06/07/18 23:22 36.7 98 16 108/71 (83) 96 Room Air 06/07/18 16:17 97 Room Air 06/07/18 15:18 36.8 98 17 108/72 (84) 95 Room Air 06/07/18 13:15 36.6 88 16 121/81 (94) 90 Room Air 06/07/18 12:56 36.4 84 16 127/84 (98) 91 Room Air 06/07/18 12:30 36.7 80 12 127/92 99 Room Air 06/07/18 12:20 79 14 123/82 99 Room Air 06/07/18 12:10 79 14 114/82 98 Room Air 06/07/18 12:00 85 12 116/72 100 Oxyhood 10 06/07/18 11:50 85 12 122/72 100 Oxyhood 10 06/07/18 11:40 36.2 92 12 118/80 94 Oxyhood 10 Lab Results: Results Past 24 Hours Test 06/07/18 13:01 06/08/18 07:22 Range/Units 25-Hydroxy Vitamin D Total 8.0 30-100 ng/ml Prothrombin Time 10.4 9.0-12.0 SECONDS Prothromb Time International Ratio 1.0 0.9-1.1
[2018-06-08] MEDS ORDERED: PRD20 PO (10:49)
--- NOTE | 2018-06-08 10:53 | Discharge Instructions ---
Discharge Instructions Date of Service Jun 08, 2018. Admission Reason for Admission: Hilar Adenopahty Discharge Discharge Diagnosis / Problem: Sarcoidosis Discharge Goals Goal(s): Prevent Disease Progression Activity Recommendations Activity Limitations: resume your previous activity . Instructions / Follow-Up Instructions / Follow-Up Dr Goldsmith on 06/12/18 at 11:15 AM,Dr Hardin on 06/20/18 at 10:45 AM ,Rheumatology will call for appointment Current Hospital Diet Patient's current hospital diet: AHA Diet (Heart Healthy) Discharge Diet Recommended Diet: AHA Diet (Heart Healthy) Procedures Procedures Performed: Mediastinoscopy with biopsies Pending Studies Studies pending at discharge: yes (Pathology results) List of pending studies: Pathology result of Lymph node Biopsy Medical Emergencies . Who to Call and When: Medical Emergencies: If at any time you feel your situation is an emergency, please call 911 immediately. . Non-Emergent Contact Non-Emergency issues call your: Primary Care Provider . 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 "Provider Documentation" section prepared by Angy Arroyo. .
--- NOTE | 2018-06-08 18:45 | Discharge Summary ---
Discharge Summary Date of Service Jun 08, 2018. Discharge Summary Admission Date: Jun 06, 2018 at 14:15 Discharge Date: Jun 08, 2018 Discharge Disposition: Home Principal Diagnosis: Sarcoidosis Secondary Diagnoses/Problems: Please see admission H&P and hospital progress note Consultations: Rheumatology and vascular surgery Medication Reconciliation New Medications: Prednisone (Prednisone) 20 Mg Tab 40 MG PO DAILY, #40 TAB Continued Medications: Bupropion HCl (Bupropion HCl Xl) 150 Mg Tab 150 MG PO DAILY Furosemide (Lasix) 20 Mg Tab 20 MG PO DAILY Levothyroxine Sodium (Levothyroxine Sodium) 150 Mcg Tab 1 TAB PO DAILY for 30 Days, #30 TAB 5 Refills Lisinopril (Zestril) 10 Mg Tab 10 MG PO DAILY, TAB Metformin Hcl (Glucophage) 500 Mg Tab 500 MG PO BID, TAB Ocuvite Preservision (Ocuvite Preservision) 1 Tab Tab 1 TAB PO DAILY, TAB Admission Information HPI (per Admitting provider): 57-year-old female who was referred for direct admission by Dr. Hardin for evaluation of hilar adenopathy. Over the past few weeks, patient has had extreme fatigue, poor appetite, weight loss, bilateral feet edema, right hand edema, and development of nodular painful rash. She had an outpatient chest CT scan done that showed a 2.7 cm right hilar lymph node with mid mediastinal lymphadenopathy. She reports the soles of her feet are very sore whenever she walks. She reports her symptoms have been slowly progressing. She has fullness of her neck, axilla, groin. She has lost about 13 pounds in 2 months. She has shortness of breath with minimal exertion. She denies orthopnea. No chest pain. She denies lightheadedness, dizziness, diaphoresis, syncopal events. No recent travel or sick contacts. She denies fevers, chills, and night sweats. No urinary symptoms. Patient was evaluated by Dr. Hardin in the clinic today who referred her for direct admission to undergo biopsy of the hilar adenopathy with Dr. Pizarro tomorrow. Past Medical/Surgical History Medical Problems: (1) Hypertension Status: Chronic (2) Hypothyroidism Status: Chronic (3) Polycystic ovary Status: Chronic Surgical Problems: (1) H/O dilation and curettage Status: Chronic (2) H/O tubal ligation Status: Chronic (3) History of carpal tunnel surgery of right wrist Status: Chronic (4) History of partial colectomy Status: Chronic (5) Status post ORIF of fracture of ankle Status: Chronic Family History FH: CAD (coronary artery disease) FATHER FH: hypertension FATHER FH: stroke FATHER Social History Smoking Status: Never Smoker Alcohol Use: occasionally Marital Status: Housing status: lives with family Occupational Status: employed Immunizations History of Influenza Vaccine: Yes Influenza Vaccine Date: Jul 20, 2017 History of Tetanus Vaccine?: Yes Tetanus Immunization Date: Feb 11, 2010 Allergies Coded Allergies: Sulfa Drugs (Verified Allergy, Unknown, ANAPHYLAXIS, 08/08/17) Home Medications Scheduled Bupropion HCl (Bupropion HCl Xl), 150 MG PO DAILY Furosemide (Lasix), 20 MG PO DAILY Levothyroxine Sodium (Levothyroxine Sodium), 1 TAB PO DAILY Lisinopril (Zestril), 10 MG PO DAILY Metformin Hcl (Glucophage), 500 MG PO BID Ocuvite Preservision (Ocuvite Preservision), 1 TAB PO DAILY Review of Systems ROS per HPI, all other systems reviewed and negative Physical Exam Vital Signs Date Time Temp Pulse Resp B/P (MAP) Pulse Ox O2 Delivery O2 Flow Rate FiO2 06/06/18 14:50 36.8 101 20 120/82 (95) 96 Room Air 06/06/18 14:30 36.8 101 20 120/82 (95) 96 Room Air General Appearance: WD/WN, no apparent distress Head: normocephalic, atraumatic Eyes: normal inspection, EOMI, sclerae normal ENT: hearing grossly normal, + pertinent finding (Mucous membranes moist) Neck: supple, no JVD, no carotid bruits, + pertinent finding (Fullness noted to the neck and a palpable lump noted in the left supraclavicular area) Respiratory/Chest: lungs clear, normal breath sounds, no respiratory distress Cardiovascular: regular rate, rhythm, normal peripheral pulses, + pertinent finding (+2 edema BLE, +1-2 edema noted to the right hand) Abdomen/GI: normal bowel sounds, non tender, soft, no organomegaly Extremities/Musculoskelatal: normal inspection, no calf tenderness, normal capillary refill Neurologic/Psych: no motor/sensory deficits, alert, normal mood/affect, oriented x 3 Skin: + rash (Scattered nodular mildly erythematous rash noted to the BUE and BLE) Lymphatic: + pertinent finding (Fullness noted to the neck, axilla, groin areas ; one palpable lump noted to the right supraclavicular area) Diagnostics Laboratory Results Results Past 24 Hours Test 06/06/18 15:49 Range/Units White Blood Count 10.39 4.8-10.8 K/uL Red Blood Count 3.60 4.2-5.4 M/uL Hemoglobin 10.8 12.0-16.0 g/dL Hematocrit 32.7 37-47 % Mean Corpuscular Volume 90.8 80-100 fL Mean Corpuscular Hemoglobin 30.0 25-34 pg Mean Corpuscular Hemoglobin Concent 33.0 32-36 g/dl RDW Standard Deviation 44.1 36.4-46.3 fL RDW Coefficient of Variation 13.3 11.5-14.5 % Platelet Count 518 130-400 K/uL Mean Platelet Volume 8.6 7.4-10.4 fL Diagnostic Radiology CTA CHEST 05/23/18 IMPRESSION: 1. Right hilar mass measuring 2.7 cm. 2. Additional pathologic mid mediastinal adenopathy. 3. No evidence for pulmonary embolus. 4. Neoplastic processes is the diagnosis of exclusion. Impression Assessment and Plan HILAR ADENOPATHY NODULAR RASH -Admit to [facility] -Patient referred for direct admission by Dr. Hardin for evaluation of hilar adenopathy -Over the past few weeks, patient has had extreme fatigue, poor appetite, weight loss, bilateral feet edema, right hand edema, and development of nodular painful rash. -Vital signs stable, labs notable for a mild anemia -Dr. Pizarro planning for biopsy tomorrow -Differentials considered sarcoidosis, lymphoma, erythema nodosum -Rheumatology consult, case discussed with Dr. Youngblood HYPOTHYROIDISM -Continue levothyroxine HYPERTENSION -continue lisinopril DVT PROPHYLAXIS -SCDs due to invasive procedure tomorrow DISPOSITION -In my clinical judgment this beneficiary meets acute admission criteria, established by [facility], that includes being hospitalized through two midnights. ADDENDUM: This is a 57 year old female with a past medical history HTN, hypothyroidism - presents with hilar adenopathy. Sent from pulmonology office. Will need biopsy Patient also has significant rash on b/l extremities, upper and lower. Nodular rash, erythematous and painful. Denies shortness of breath/chest pain. Plan for thoracic surgery to perform mediastinotomy and biopsy rheumatology consulted for the skin changes YOJANA level pending Anemia is new; possibly related to sarcoid? monitor H/H Resuscitation Status VTE Prophylaxis Will order VTE Prophylaxis: Yes <Electronically signed by Laisha LEWIS> <Electronically signed by Sarita Renee DO> Signed: 06/06/18 1637 Signed: 06/06/18 2369 Physical Exam (per Admitting): General Appearance: WD/WN, no apparent distress Head: normocephalic, atraumatic Eyes: normal inspection, EOMI, sclerae normal ENT: hearing grossly normal, + pertinent finding (Mucous membranes moist) Neck: supple, no JVD, no carotid bruits, + pertinent finding (Fullness noted to the neck and a palpable lump noted in the left supraclavicular area) Respiratory/Chest: lungs clear, normal breath sounds, no respiratory distress Cardiovascular: regular rate, rhythm, normal peripheral pulses, + pertinent finding (+2 edema BLE, +1-2 edema noted to the right hand) Abdomen/GI: normal bowel sounds, non tender, soft, no organomegaly Extremities/Musculoskelatal: normal inspection, no calf tenderness, normal capillary refill Neurologic/Psych: no motor/sensory deficits, alert, normal mood/affect, oriented x 3 Skin: + rash (Scattered nodular mildly erythematous rash noted to the BUE and BLE) Lymphatic: + pertinent finding (Fullness noted to the neck, axilla, groin areas; one palpable lump noted to the right supraclavicular area) Hospital Course Assessment and Plan Sarcoidosis HILAR ADENOPATHY NODULAR RASH -Patient referred for direct admission by Dr. Hardin for evaluation of hilar adenopathy -Over the past few weeks, patient has had extreme fatigue, poor appetite, weight loss, bilateral feet edema, right hand edema, and development of nodular painful rash. -Vital signs stable, labs notable for a mild anemia -Dr. Pizarro planning for biopsy this afternoon -Differentials considered sarcoidosis, lymphoma, erythema nodosum -Rheumatology consult, case discussed with Dr. Youngblood-appreciate input and recommendation -Started on prednisone 40 mg daily -Discussed with the rheumatology, pulmonary and vascular surgery -We will discharge home today on prednisone 40 mg daily -Appointments with the pulmonary, primary care have been made Status post mediastinoscopy with lymph node biopsy Frozen section showed noncaseating granuloma suggestive of sarcoidosis Final pathology report is pending HYPOTHYROIDISM -Continue levothyroxine HYPERTENSION -continue lisinopril DVT PROPHYLAXIS -SCDs due to invasive procedure tomorrow DISPOSITION -Discharge home today Total time spent on discharge = 35 minute This includes examination of the patient, discharge planning, medication reconciliation, and communication with other providers. Discharge Instructions Date of Service Jun 08, 2018. Admission Reason for Admission: Hilar Adenopahty Discharge Discharge Diagnosis / Problem: Sarcoidosis Discharge Goals Goal(s): Prevent Disease Progression Activity Recommendations Activity Limitations: resume your previous activity . Instructions / Follow-Up Instructions / Follow-Up Dr Goldsmith on 06/12/18 at 11:15 AM,Dr Hardin on 06/20/18 at 10:45 AM ,Rheumatology will call for appointment Current Hospital Diet Patient's current hospital diet: AHA Diet (Heart Healthy) Discharge Diet Recommended Diet: AHA Diet (Heart Healthy) Procedures Procedures Performed: Mediastinoscopy with biopsies Pending Studies Studies pending at discharge: yes (Pathology results) List of pending studies: Pathology result of Lymph node Biopsy Medical Emergencies . Who to Call and When: Medical Emergencies: If at any time you feel your situation is an emergency, please call 911 immediately. . Non-Emergent Contact Non-Emergency issues call your: Primary Care Provider . 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 "Provider Documentation" section prepared by Angy Arroyo. . <Electronically signed by Angy Arroyo M.D.> Signed: 06/08/18 4397 Additional Copies To Andra Goldsmith,DO
[2018-06-11 07:35] LABS: QUANTIF MITOGEN-NIL 3.55 IU/ML; QUANTIFERON NEGATIVE (NEGATIVE); QUANTIFERON NIL 0.04 IU/ML
[2018-06-14] MEDS ORDERED: ERGOCALCIFEROL 50,000 INTER.UNIT CAP PO SCH (08:00)
== END 2018-06-08 11:24 | disposition home or self-care (01) | DRG 168 ==
LOC: C.MS2W 14:15
PROVIDERS: ADMIT Hospitalist; ATTEND Internal Medicine
PROC: 07B Lymphatic and Hemic Systems, Excision (ICD-10-PCS; principal; 2018-06-07 09:45)
PROC: 07B74ZX Excision of Thorax Lymphatic, Percutaneous Endoscopic Approach, Diagnostic (ICD-10-PCS; principal; 2018-06-07 09:45)
DX: D86.9 Sarcoidosis, unspecified (principal); I10 Essential (primary) hypertension; E28.2 Polycystic ovarian syndrome; E03.9 Hypothyroidism, unspecified; D64.9 Anemia, unspecified; E66.9 Obesity, unspecified; Z68.33 Body mass index [BMI] 33.0-33.9, adult; Z79.84 Long term (current) use of oral hypoglycemic drugs; Z79.899 Other long term (current) drug therapy; Z88.2 Allergy status to sulfonamides